=== PATIENT | male | born 1960 | race Hispanic/Latino ===

== ENCOUNTER → 2024-11-11 | Day surgery (SDC) | payer BC ==
[2024-11-08 11:44] LABS: BASOPHILS % 0.4 % (0.0-1.0); EOSINOPHILS % 3.4 % (0.0-6.0); LYMPHOCYTES % 14.9 % (18.0-39.1); MONOCYTES % 9.6 % (4.4-11.3); NEUTROPHILS % 71.6 % (38.7-80.0); RED CELL DISTRIBUTION WIDTH 15.9 % (11.7-14.4)
[2024-11-08 12:07] LABS: EST GLOMERULAR FILTRATION RATE 87.0 ML/MIN (>=60)
[~2024-11-11] MED LIST: ACETAMINOPHEN 1000 MG/100 ML 100 ML IV ONE; ASPIRIN EC81 MG PO; BENICAR5 MG PO; BUPIVACAINE 0.5%/EPI 30 ML SDV INJ ONE; CENTRUM ADULTS1 EACH PO; DEXAMETHASONE SOD PHOS INJ 4 MG/ML SDV ONE; FENTANYL CITRATE/PF 100MCG/2 ML INJ ONE; FEROSUL325 MG PO; HYDROCODON-ACE1 EA16 PO; LACTATED RINGER'S 1,000 ML ONE; LIDOCAINE HCL 2% LOCAL INJ 5 ML SDV VIAL INJ ONE; METFORMIN HCL500 M2 PO; METOPROLOL SUCC25 MG PO; MIDAZOLAM HCL 2 MG/2 ML VIAL ONE; ONDANSETRON HCL INJ 2MG/ML 2ML 2 MG/ML VIAL ONE; PANTOPRAZOLE SO40 MG PO; PROPOFOL IV EMULSION 10 MG/ML 20 ML VIAL ONE; SEVOFLURANE INHAL SOLN 250 ML PEN BTL ONE
[2024-11-11] MEDS: CEFAZOLIN SODIUM 2 GM ONE (09:19)
[2024-11-11] MEDS: LACTATED RINGER'S 1,000 ML ONE (09:19)
[2024-11-11 12:00] VITALS: BP 130/65; PULSE 65; RESP 17; O2SAT 99
== END | disposition home or self-care (01) ==
LOC: OR 07:43
PROVIDERS: ATTEND Podiatrist Foot Surgery
DX: S92.101A Unspecified fracture of right talus, initial encounter for closed fracture (principal); S92.251A Displaced fracture of navicular [scaphoid] of right foot, initial encounter for closed fracture; E11.610 Type 2 diabetes mellitus with diabetic neuropathic arthropathy; E11.40 Type 2 diabetes mellitus with diabetic neuropathy, unspecified; S92.014A Nondisplaced fracture of body of right calcaneus, initial encounter for closed fracture; D64.9 Anemia, unspecified; I10 Essential (primary) hypertension; K21.9 Gastro-esophageal reflux disease without esophagitis; E66.01 Morbid (severe) obesity due to excess calories; X58.XXXA Exposure to other specified factors, initial encounter; Z01.810 Encounter for preprocedural cardiovascular examination; Z01.812 Encounter for preprocedural laboratory examination; Z01.818 Encounter for other preprocedural examination; Z79.82 Long term (current) use of aspirin; Z79.84 Long term (current) use of oral hypoglycemic drugs; Z79.899 Other long term (current) drug therapy; Z87.891 Personal history of nicotine dependence
CPT/HCPCS: 28546; 28576; 36415 ×2; 71046; 76000; 80048; 82948; 85025; 93005; C1713 ×2; J0131; J0690; J1100; J2003; J2250; J2405; J2704; J3010; J7121